=== PATIENT | male | born 1980 | race Caucasian/White ===

== ENCOUNTER 2021-09-19 10:42 | Outpatient (CLI) | payer OTHER, SELFPAY ==
--- NOTE | ~2021-09-19 | US_ITS ---
EXAMINATION: US abdomen limited DATE: 09/19/2021 11:38 INDICATION: Elevated liver function tests TECHNIQUE: Multiple grayscale and Doppler ultrasound images of the abdomen were obtained. COMPARISON: None available FINDINGS: Bowel gas obscures visualization of the pancreas. The visualized portions of the pancreas a re unremarkable. The liver is normal with normal echogenicity and echotexture. No surface nodularity. Normal hepatopetal flow in the main portal vein. There are tiny mobile stones in the gallbladder. Th ere is no gallbladder wall thickening or pericholecystic fluid. The normal common bile duct measures 3 mm. There was no sonographic Jay sign. IMPRESSION: 1. Cholelithiasis without evidence of cholecystitis. Reviewed, dictated and finalized at location B.
== END 2021-09-19 10:43 | disposition home or self-care (01) ==
LOC: ANHIMG 10:47
PROVIDERS: PCP Family Medicine; Visit Provider Physician Assistant
DX: R74.01 Elevation of levels of liver transaminase levels (principal); K80.20 Calculus of gallbladder without cholecystitis without obstruction
CPT/HCPCS: 76705

== ENCOUNTER 2022-08-15 10:09 | Outpatient (CLI) | payer OTHER, SELFPAY ==
--- NOTE | ~2022-08-15 | US_ITS ---
EXAMINATION: US soft tissue UE LT DATE: 08/15/2022 10:33 INDICATION: Ganglion cyst at the left wrist TECHNIQUE: Multiple grayscale and Doppler ultrasound images of the region of concern at the lateral l eft wrist were obtained. COMPARISON: None FINDINGS: Lobular anechoic cystic lesion at the region of concern which measures 2.8 x 1.2 x 1.7 cm . No sports management internship al vascular flow to suggest aneurysm or surrounding hyperemia to suggest abscess. There appears be a neck extending deep to what is likely joint space which be most consistent with a ganglion cyst. IMPRESSION: 1. 2.8 x 1.2 x 1.7 cm lobular fluid collection at the region of concern most likely representing a ga nglion cyst. Reviewed, dictated and finalized at location A. IMPRESSION: 1. 2.8 x 1.2 x 1.7 cm lobular fluid collection at the region of concern most li jose alejandro representing a ganglion cyst.
== END 2022-08-15 10:10 | disposition home or self-care (01) ==
PROVIDERS: PCP Family Medicine; Visit Provider Physician Assistant
DX: M67.432 Ganglion, left wrist (principal)
CPT/HCPCS: 76882

== ENCOUNTER 2023-06-05 18:47 | Emergency (ER) | payer OTHER, SELFPAY ==
[2023-06-05 18:51] VITALS: BP 165/94; PULSE 94; RESP 16; TEMP 36.8; O2SAT 100
--- NOTE | 2023-06-05 19:25 | PC.NURSE ---
Pt came to ED with stated hornet sting between the fingers. Pt left hand is noted to be swollen, starting of blistering, and red. Pt states that his hand is itchy, in a lot of pain, swollen, and warm to touch. Pt states he took bendryll today at 1600 and last night. He stated he rubbed cream on it and took ibuprofen for pain. Pt denies any of the medications working.
--- NOTE | 2023-06-05 19:50 | ED.GENADULT ---
HPI - General Adult General Chief complaint: Extremity Injury, Upper Stated complaint: left hand swollen after stung/wornet Time Seen by Provider: 06/05/23 19:18 Source: patient Mode of arrival: ambulatory Limitations: no limitations History of Present Illness HPI narrative: This is a 43-year-old male who presents to the ED with chief complaint of left hand swelling occurring after a hornet sting yesterday afternoon. Patient states he had initial pain and swelling to the hand but was concerned today because the swelling was going into the wrist. Reports the inciting sting was located at the dorsum of the index finger. Denies any further site of pain or injury. Denies any shortness of breath or tongue swelling. states he has taken a couple doses of Benadryl with minimal relief. Related Data Allergies Allergy/AdvReac Type Severity Reaction Status Date / Time azithromycin AdvReac Vomiting Verified 06/05/23 19:22 Exam Narrative: GENERAL: Well-appearing, well-nourished, and in no acute distress. HEAD: Normocephalic, atraumatic. EYES: PERRLA and EOMI. ENT: Nares clear, no rhinorrhea or epistaxis. Mucous membranes moist. Oropharynx without tonsillar hypertrophy exudate or other lesions. Airway intact. No tongue swelling. NECK: Supple. No adenopathy or masses. CHEST: No respiratory distress. Clear to auscultation. No wheezes rales or rhonchi HEART: Regular rate and rhythm. No murmur heard. Normal peripheral pulses. ABDOMEN: Soft, nontender, nondistended, normal active bowel sounds. MSK: LUE: Erythema and swelling to the left hand and left wrist. RUE: Benign. SKIN: Warm, dry, no rash. Small punctate lesion to the dorsum of the left finger. NEURO: Alert and oriented x3. No focal deficits. PSYCH: Normal mood and affect. Course Vital Signs Vital signs: Vital Signs Temperature 98.3 F 06/05/23 18:51 Pulse Rate 94 06/05/23 18:51 Respiratory Rate 16 06/05/23 18:51 Blood Pressure 165/94 H 06/05/23 18:51 Pulse Oximetry 100 06/05/23 18:51 Temperature 98.3 F 06/05/23 18:51 Pulse Rate 94 06/05/23 18:51 Respiratory Rate 16 06/05/23 18:51 Blood Pressure 165/94 H 06/05/23 18:51 Pulse Oximetry 100 06/05/23 18:51 Medical Decision Making MDM Narrative Medical decision making narrative: This is a 43-year-old male with chief complaint of left hand redness and swelling following a hornet sting yesterday. Vitals are normal. Exam reveals swollen left hand and wrist. Punctate lesion to the dorsum of the finger indicating insect sting. No evidence of infection or any other alarm signs. Symptoms consistent with local allergic reaction. He will be discharged in stable condition. Prednisone 5-day course given. Instructed to continue taking Benadryl. He is understanding and agreeable with the plan for discharge and follow-up with PCP. Vital Signs Vital Signs: Vital Signs Temperature 98.3 F 06/05/23 18:51 Pulse Rate 94 06/05/23 18:51 Respiratory Rate 16 06/05/23 18:51 Blood Pressure 165/94 H 06/05/23 18:51 Pulse Oximetry 100 06/05/23 18:51 Temperature 98.3 F 06/05/23 18:51 Pulse Rate 94 06/05/23 18:51 Respiratory Rate 16 06/05/23 18:51 Blood Pressure 165/94 H 06/05/23 18:51 Pulse Oximetry 100 06/05/23 18:51 Discharge Plan Discharge Clinical Impression: Allergic reaction Patient Disposition: Home, Self-Care Condition: Stable Instructions: Antibiotic Form Additional Instructions: Your symptoms are consistent with a local allergic reaction. Please take prednisone burst for the next 5 days. Continue take Benadryl every 12 hours as needed. Return to the ER for any new or worsening symptoms. Prescriptions: New prednisone 50 mg tablet 50 mg PO DAILY 5 Days Qty: 5 0RF Follow-up/Referrals: Isrrael,Jennifer Tirado MD [Non-Staff] - Time of Disposition: 19:55
[2023-06-05] MEDS: predniSONE 20 MG TABLET 40 MG PO (20:06)
== END 2023-06-05 20:10 | disposition home or self-care (01) ==
LOC: ANHED 20:00
PROVIDERS: Emergency Provider Physician Assistant; PCP Physician Assistant
DX: T63.451A Toxic effect of venom of hornets, accidental (unintentional), initial encounter (principal)
CPT/HCPCS: 99283; J7512

== ENCOUNTER 2024-01-07 21:53 | Emergency (ER) | payer OTHER, SELFPAY ==
[2024-01-07 21:54] VITALS: BP 154/118; PULSE 102; RESP 18; TEMP 36.1; O2SAT 96
[2024-01-08] MEDS: TETANUS,DIPHTHERIA,AC PERTUSSIS ADULT (0.5 ML) BOOSTRIX IM (01:12)
--- NOTE | 2024-01-08 01:37 | ED.WOUNDLAC ---
HPI - Wound/Laceration General Chief Complaint: Wound/Laceration Stated Complaint: L upper arm lac Time Seen by Provider: 01/08/24 00:16 History of Present Illness HPI narrative: 43-year-old male presents to the emergency department for evaluation for laceration to the ventral aspect of his left forearm. Patient states around 9:00 a.m. this evening, he was disassembling a TV and cut himself on the screen. Patient states close was intact and not shattered. Denies difficulty with flexion of his wrist or fingers. Tetanus is not up-to-date. Bleeding is controlled. Related Data Allergies Allergy/AdvReac Type Severity Reaction Status Date / Time azithromycin AdvReac Vomiting Verified 01/07/24 21:53 Review of Systems Review of Systems: CONSTITUTIONAL: Denies fever, chills, or sweats. EYES: Denies visual changes, redness, or discharge. ENT: Denies rhinorrhea, congestion, sore throat, or otalgia. CARDIOVASCULAR: Denies chest pain, palpitations, or edema. RESPIRATORY: Denies cough or dyspnea. GASTROINTESTINAL: Denies abdominal pain, nausea, vomiting, or diarrhea. GENITOURINARY: Denies dysuria or hematuria. SKIN: See HPI MUSCULOSKELETAL: Denies back pain, joint pain, or myalgia. NEUROLOGIC: Denies headache, numbness, or weakness. PSYCHIATRIC: Denies anxiety or depression. Exam Narrative: GENERAL: Well-appearing, well-nourished, and in no acute distress. HEAD: Normocephalic, atraumatic. NECK: Supple. CHEST: Clear to auscultation. No respiratory distress. HEART: Regular rate and rhythm. No murmur heard. Normal peripheral pulses. EXTREMITIES: Normal range of motion. No edema. SKIN: 2 cm linear laceration to the ventral aspect of the left forearm, bleeding controlled. Laceration expose the subcutaneous fat, otherwise no deep structures or foreign bodies visualized. Patient able to flex wrist and fingers without difficulty. NEURO: No focal deficits. Alert and oriented x3 Course Vital Signs Vital signs: Vital Signs Temperature 97 F L 01/07/24 21:54 Pulse Rate 102 H 01/07/24 21:54 Respiratory Rate 18 01/07/24 21:54 Blood Pressure 154/118 H 01/07/24 21:54 Pulse Oximetry 96 01/07/24 21:54 Oxygen Delivery Room Air 01/07/24 21:54 Temperature 97 F L 01/07/24 21:54 Pulse Rate 102 H 01/07/24 21:54 Respiratory Rate 18 01/07/24 21:54 Blood Pressure 154/118 H 01/07/24 21:54 Pulse Oximetry 96 01/07/24 21:54 Oxygen Delivery Room Air 01/07/24 21:54 Procedures Laceration Laceration 1: Date: 01/08/24 Time: 01:45 Site: upper extremity Side (If applicable): left Size (cm): 2 Description: linear Depth: simple, single layer Local Anesthetic: lidocaine 1% and with epi Amount of anesthesia used (mL): 5 Pre-repair: wound explored, irrigated and irrigated extensively ====== Skin Level ====== Skin layer closed with: nylon Size (cm): 4-0 Number of sutures: 3 Technique: simple, interrupted ====== Subcutaneous Layer ====== ====== Muscle Layer ====== ====== Tendon Layer ====== MDM - Wound/Laceration MDM Narrative Medical decision making narrative: 43-year-old male presents emergency department for laceration to the ventral aspect of the left forearm that occurred at 9:00 p.m. this evening. See HPI for further history. Triage vital significant for elevated blood pressure and mild tachycardia, otherwise unremarkable. Tetanus updated. Laceration irrigated extensively with normal saline. He is neurovascularly intact. Local anesthetic applied and 3 sutures placed without complications. Discussed suture removal in 7 days, wound care and Tylenol ibuprofen for pain. Strict ED return precautions were discussed. He is agreeable to plan verbalized understanding. Discharged in stable condition. Discharge Plan Discharge Clinical Impression: Laceration Patient Disposition: Home, Se
[2024-01-08] MEDS: LIDO 1%/EPINEPHRINE 1:100,000 20 ML VIAL (01:40)
[2024-01-08 02:06] VITALS: BP 154/98; PULSE 98; RESP 16; TEMP 36.7; O2SAT 97
== END 2024-01-08 02:07 | disposition home or self-care (01) ==
PROVIDERS: Emergency Provider Physician Assistant; PCP Physician Assistant
DX: S51.812A Laceration without foreign body of left forearm, initial encounter (principal); Z23 Encounter for immunization; W26.8XXA Contact with other sharp object(s), not elsewhere classified, initial encounter
CPT/HCPCS: 12001; 90471; 90715; 99282